=== PATIENT | male | born 1990 | race Caucasian/White ===

== ENCOUNTER 2023-10-22 15:30 | Outpatient (RCR) | payer BC, SELFPAY ==
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
== END 2023-10-22 19:00 | disposition home or self-care (01) ==
LOC: PT 15:30
DX: S82.141D Displaced bicondylar fracture of right tibia, subsequent encounter for closed fracture with routine healing (principal)
CPT/HCPCS: 97016; 97110; 97140; 97161; 97530